=== PATIENT | male | born 1950 ===

== ENCOUNTER 2021-09-28 05:28 | Day surgery (SDC) | payer OTHER | END 2021-09-28 11:35 | disposition home or self-care (01) | LOC: AMB-ENDOS 05:28 | PROVIDERS: ATTEND Surgery | DX: D12.0 Benign neoplasm of cecum (principal); Z20.822 Contact with and (suspected) exposure to COVID-19; E10.9 Type 1 diabetes mellitus without complications; I10 Essential (primary) hypertension; Z79.02 Long term (current) use of antithrombotics/antiplatelets; Z79.84 Long term (current) use of oral hypoglycemic drugs; Z79.82 Long term (current) use of aspirin; E11.9 Type 2 diabetes mellitus without complications ==